=== PATIENT | male | born 1990 | race Caucasian/White ===

== ENCOUNTER 2023-09-12 06:37 | Day surgery (SDC) | payer BC, OTHER ==
[~2023-09-12 06:37] MED LIST: Acetaminophen 1,000 MG in Premix Bag 1 BAG IV SCH; Lactated Ringers 1,000 ML IV SCH; Pregabalin 75 MG Cap PO SCH; ceFAZolin 2 GM in Sodium Chloride 0.9% 50 ML IV ONE
[2023-09-12] MEDS ORDERED: Lidocaine 1% 20 ML MDV ONE (07:12)
[2023-09-12] MEDS ORDERED: Bupivacaine 0.25% 10 ML SDV ONE (07:12)
[2023-09-12] MEDS ORDERED: propofoL 50 ML ONE (07:29)
[2023-09-12] MEDS ORDERED: fentaNYL 100 MCG/2 ML SDV ONE (07:36)
[2023-09-12] MEDS ORDERED: Water For Injection, Sterile 20 ML ONE (07:36)
[2023-09-12] MEDS ORDERED: dexmedeTOMIDine HCl 200 MCG/2 ML SDV ONE (07:36)
[2023-09-12] MEDS ORDERED: ceFAZolin 2 GM Vial ONE (08:10)
[2023-09-12] MEDS ORDERED: Propofol 200 MG/20 ML SDV ONE ×2 (08:26→08:43)
[2023-09-12] MEDS ORDERED: Ketorolac 30 MG/ML SDV ONE (08:48)
== END 2023-09-12 10:15 | disposition home or self-care (01) ==
LOC: MW.SDS 06:37 → MERGE 08:00 → MW.SDS 10:15
PROVIDERS: ATTEND Surgery
DX: D17.1 Benign lipomatous neoplasm of skin and subcutaneous tissue of trunk (principal); F17.290 Nicotine dependence, other tobacco product, uncomplicated; Z88.5 Allergy status to narcotic agent
CPT/HCPCS: A9270-GY; J0690; J1885; J2704; J3010; J3490; J7120